=== PATIENT | male | born 1940 | race Caucasian/White ===

== ENCOUNTER 2018-04-12 16:34 | Emergency (ER) | payer MEDICARE ==
[~2018-04-12] VITALS: Ht 172.7 cm; Wt 77.1 kg
[2018-04-12 16:38] VITALS: Ht 172.7 cm; Wt 77.1 kg
[2018-04-12 17:49] LABS: BASOPHILS 0.4 % (0-2); EOSINOPHILS 1.7 % (0-7); HEMATOCRIT 44.5 % (42.0-54.0); HEMOGLOBIN 15.6 g/dL (13.5-17.5); IMMATURE GRANULOCYTES 0.2 % (0-5); LYMPHOCYTES 22.5 % (15-50); MCH 35.8 pg (26.0-34.0); MCHC 35.1 g/dL (31.0-37.0); MCV 102.1 fL (80.0-100.0); MEAN PLATELET VOLUME 11.6 fL (7.4-10.4); NEUTROPHILS 61.2 % (40-80); PLATELET COUNT 183 10x3/uL (130-400); RBC 4.36 10x6/uL (4.20-6.10); RDW 13.1 % (11.5-14.5); WBC 8.4 10x3/uL (4.8-10.8)
[2018-04-12 17:50] LABS: APPEARANCE CLEAR (CLEAR); BILIRUBIN NEGATIVE (NEGATIVE); COLOR YELLOW (YELLOW); GLUCOSE NEGATIVE (NEGATIVE); KETONE SMALL mg/dL (NEGATIVE); NITRITE NEGATIVE (NEGATIVE); PROTEIN NEGATIVE (NEGATIVE); SPECIFIC GRAVITY 1.025 (1.005-1.020); UROBILINOGEN NORMAL (NORMAL)
[2018-04-12 18:02] LABS: UDS - AMPHET NEGATIVE QUAL (NEGATIVE); UDS - BARB NEGATIVE QUAL (NEGATIVE); UDS - BENZO NEGATIVE QUAL (NEGATIVE); UDS - COCAINE NEGATIVE QUAL (NEGATIVE); UDS - OPIATE NEGATIVE QUAL (NEGATIVE); UDS - PCP NEGATIVE QUAL (NEGATIVE); UDS - THC NEGATIVE QUAL (NEGATIVE)
[2018-04-12 18:07] LABS: ALBUMIN 3.3 g/dL (3.4-5.0); ALKALINE PHOSPHATASE 54 U/L (46-116); ALT (SGPT) 36 U/L (10-68); BILIRUBIN - TOTAL 0.99 mg/dL (0.2-1.3); CALC OSMOLALITY 275 mosm/kg (275-300); CALCIUM 9.5 mg/dL (8.5-10.1); CARBON DIOXIDE 29.8 mmol/L (21.0-32.0); CHLORIDE - SERUM 100 mmol/L (98-107); GLUCOSE 98 mg/dL (74-106); POTASSIUM - SERUM 3.6 mmol/L (3.5-5.1); PROTEIN - SERUM 6.5 g/dL (6.4-8.2); SODIUM 137 mmol/L (136-145); UREA NITROGEN 18 mg/dL (7-18); eGFR NON AFRICAN AMERICAN 76 mL/min (90-120)
[2018-04-12 18:15] LABS: THYROID STIMULATING HORMONE 1.25 uIU/mL (0.36-3.74)
[2018-04-12 20:41] VITALS: BP 137/77
[2018-04-13] MEDS ORDERED: INDERAL LA80 MG PO (10:08)
[2018-04-13] MEDS ORDERED: ARICEPT23 MG PO (10:11)
[2018-04-13] MEDS ORDERED: TYLENOL W/CODEI1 TAB PO (10:17)
[2018-04-13] MEDS ORDERED: ZOLOFT50 MG PO (10:19)
[2018-04-13] MEDS ORDERED: OMEPRAZOLE20 M1 PO (10:22)
[2018-04-13] MEDS ORDERED: ZYLOPRIM300 MG PO (10:23)
[2018-04-13] MEDS ORDERED: VIAGRA100 MG PO (10:27)
[2018-04-13] MEDS ORDERED: FLUTICASONE PRO16 GM NASAL (10:39)
[2018-04-13] MEDS ORDERED: BUTALB-APAP-CA1 EACH PO (10:57)
== END 2018-04-12 20:48 ==
LOC: D.ER 16:34
PROVIDERS: Family Medicine
DX: G30.9 Alzheimer's disease, unspecified (principal); F02.81 Dementia in other diseases classified elsewhere, unspecified severity, with behavioral disturbance

== ENCOUNTER 2018-04-12 21:11 | Inpatient (IN) | payer MEDICARE ==
[~2018-04-12] VITALS: Ht 172.7 cm; Wt 79.1 kg
--- NOTE | ~2018-04-12 | PN ---
PATIENT:DAY ANDRADE MEDICAL RECORD: [id number] LOCATION:JACOB Prajapati ADMISSION DATE: 04/12/18 PROGRESS NOTE DATE OF SERVICE: 04/18/2018 SUBJECTIVE: No new complaint. OBJECTIVE: The patient remains extremely cooperative. He is very pleasant and easily redirected. The patient has shown absolutely no evidence of aggressiveness or assaultiveness. He is compliant with nursing staff and takes medication when offered. On exam, mood is euthymic. Affect is bland. Speech is tangential and circumstantial. Content of thought is negative for psychosis or suicidality. Sensorium unchanged. ASSESSMENT: No change in diagnosis. PLAN: 1. Awaiting resolution of placement options. 2. Continue current medications and supportive therapy. TRANSINT:[id number] Voice Confirmation ID: [id number] DOCUMENT ID: [id number] MONCHO ZEPEDA III, MD at 1133 CC: [id number] DICTATION DATE: 04/18/18 1247 TWISTER TENDER: 04/18/18 1411 ADM IN [place] [id number] [place] [address]
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
--- NOTE | ~2018-04-12 | PN ---
PATIENT:DAY ANDRADE MEDICAL RECORD: [id number] LOCATION:JACOB Prajapati ADMISSION DATE: 04/12/18 PROGRESS NOTE DATE OF SERVICE: 04/15/2018 SUBJECTIVE: No new complaint. OBJECTIVE: The patient has been cooperative. He slept somewhat less than 4 hours last night. On exam today, the patient's speech is tangential and rambling. He shows mild dysarthria. He does have a history of excessive alcohol consumption. The patient's mood is euthymic. Affect is bland. Thought content negative for psychosis. Sensorium unchanged. ASSESSMENT: No change in diagnosis. PLAN: 1. Maintain current medications, but add trazodone 50 mg at bedtime. 2. Continue supportive therapy. TRANSINT:[id number] Voice Confirmation ID: [id number] DOCUMENT ID: [id number] MONCHO ZEPEDA III, MD at 0553 CC: [id number] DICTATION DATE: 04/15/18 1425 HAT FINISHER: 04/15/18 1533 ADM IN [place] [address] [place] [id number]
--- NOTE | ~2018-04-12 | PN ---
PATIENT:DAY ANDRADE MEDICAL RECORD: [id number] LOCATION:JACOB Prajapati ADMISSION DATE: 04/12/18 PROGRESS NOTE DATE OF SERVICE: 04/14/2018 SUBJECTIVE: The patient's case was discussed with staff. He has no new complaint. OBJECTIVE: The patient is confused, but in good behavioral control. He has not been aggressive. He does have neuropsychological testing pending. ASSESSMENT: No change in diagnoses. PLAN: Supportive and educational interventions were made. Long-term prognosis is guarded. TRANSINT:[id number] Voice Confirmation ID: [id number] DOCUMENT ID: [id number] ERIC HEALY MD at 1434 CC: [id number] DICTATION DATE: 04/14/18 1400 DIRECTOR PHARMACEUTICAL: 04/14/18 1435 DIS IN 04/22/18 [facility] [address] [place] [address]
--- NOTE | ~2018-04-12 | PN ---
PATIENT:DAY ANDRADE MEDICAL RECORD: [id number] LOCATION:JACOB Jones113 ADMISSION DATE: 04/12/18 PROGRESS NOTE DATE OF SERVICE: 04/19/2018 SUBJECTIVE: No new complaint. OBJECTIVE: The patient has continued to be quiet and pleasant and cooperative and compliant with staff. He shows absolutely no evidence whatsoever of any aggressiveness or hostility. He has no memory of events leading up to the hospitalization. He is oriented only to person with absolutely no insight. ASSESSMENT: No change in diagnosis. PLAN: 1. Continue current medication. 2. Await placement, resolution. TRANSINT:[id number] Voice Confirmation ID: [id number] DOCUMENT ID: [id number] MONCHO ZEPEDA III, MD at 1019 CC: [id number] DICTATION DATE: 04/19/18 1152 SULFUR BURNER: 04/19/18 1215 ADM IN [place] [address] [place] [address]
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
--- NOTE | ~2018-04-12 | PN ---
PATIENT:DAY ANDRADE MEDICAL RECORD: [id number] LOCATION:KeliTAYLORGladys JonesChristie ADMISSION DATE: 04/12/18 PROGRESS NOTE DATE OF SERVICE: 04/22/2018 SUBJECTIVE: No new complaint. OBJECTIVE: The patient is scheduled for discharge to [facility] today, tolerating medications. No new problems. On exam, mood is pleasant and euthymic. Affect is shallow and constricted. Speech is tangential. Content of thought unchanged. Sensorium unchanged. ASSESSMENT: No change in diagnosis. PLAN: The patient will be discharged later today. TRANSINT:[id number] Voice Confirmation ID: [id number] DOCUMENT ID: [id number] MONCHO ZEPEDA III, MD at 1229 CC: [id number] DICTATION DATE: 04/22/18 1128 UPHOLSTERER ASSEMBLY LINE: 04/22/18 1133 ADM IN [facility] [address] [place] [address]
[2018-04-13 07:49] LABS: BASOPHILS 0.4 % (0-2); HEMATOCRIT 45.9 % (42.0-54.0); HEMOGLOBIN 15.8 g/dL (13.5-17.5); IMMATURE GRANULOCYTES 0.4 % (0-5); LYMPHOCYTES 27.5 % (15-50); MCH 35.1 pg (26.0-34.0); MCHC 34.4 g/dL (31.0-37.0); MEAN PLATELET VOLUME 11.6 fL (7.4-10.4); MONOCYTES 11.5 % (2-11); NEUTROPHILS 58.2 % (40-80); PLATELET COUNT 193 10x3/uL (130-400); RDW 13.1 % (11.5-14.5); WBC 7.3 10x3/uL (4.8-10.8)
[2018-04-13 08:23] LABS: ALBUMIN 3.4 g/dL (3.4-5.0); ALKALINE PHOSPHATASE 54 U/L (46-116); ALT (SGPT) 35 U/L (10-68); BILIRUBIN - TOTAL 1.07 mg/dL (0.2-1.3); CALC OSMOLALITY 277 mosm/kg (275-300); CALCIUM 9.2 mg/dL (8.5-10.1); CARBON DIOXIDE 31.6 mmol/L (21.0-32.0); CHLORIDE - SERUM 101 mmol/L (98-107); CHOL - HDL RATIO 4.1 ratio (2.3-4.9); CHOLESTEROL, TOTAL 178 mg/dL (0-200); GLUCOSE 87 mg/dL (74-106); HDL CHOLESTEROL 44 mg/dL (32-96); LDL CHOLESTEROL 120 mg/dL (0-100); LDL-HDL RATIO 2.7 ratio (1.5-3.5); POTASSIUM - SERUM 3.3 mmol/L (3.5-5.1); PROTEIN - SERUM 6.7 g/dL (6.4-8.2); SODIUM 140 mmol/L (136-145); THYROID STIMULATING HORMONE 1.55 uIU/mL (0.36-3.74); TRIGLYCERIDE 71 mg/dL (30-200); eGFR NON AFRICAN AMERICAN 76 mL/min (90-120)
[2018-04-13 08:24] LABS: UREA NITROGEN 13 mg/dL (7-18)
[2018-04-13] MEDS ORDERED: INDERAL LA80 MG PO (10:08)
[2018-04-13] MEDS ORDERED: ARICEPT23 MG PO (10:11)
[2018-04-13] MEDS ORDERED: TYLENOL W/CODEI1 TAB PO (10:17)
[2018-04-13] MEDS ORDERED: ZOLOFT50 MG PO (10:19)
[2018-04-13] MEDS ORDERED: OMEPRAZOLE20 M1 PO (10:22)
[2018-04-13] MEDS ORDERED: ZYLOPRIM300 MG PO (10:23)
[2018-04-13] MEDS ORDERED: VIAGRA100 MG PO (10:27)
[2018-04-13] MEDS ORDERED: FLUTICASONE PRO16 GM NASAL (10:39)
[2018-04-13] MEDS ORDERED: BUTALB-APAP-CA1 EACH PO (10:57)
[2018-04-13 11:57] VITALS: BP 112/68
[2018-04-13 13:46] VITALS: BP 112/68; BMI 26.5
[2018-04-13 14:17] VITALS: BMI 26.5
[2018-04-13 14:59] VITALS: Ht 172.7 cm; Wt 79.1 kg
[2018-04-13 19:45] VITALS: BP 117/69
[2018-04-14 07:30] VITALS: BP 126/73
[2018-04-14 07:33] LABS: RAPID PLASMA REAGIN Non Reactive (Non Reactive)
[2018-04-14 08:21] LABS: FOLATE (FOLIC ACID) - SERUM 7.8 ng/mL (>3.0); VITAMIN D 25 HYDROXY 20.3 ng/mL (30.0-100.0)
[2018-04-14 19:24] VITALS: BP 151/85
[2018-04-15 08:12] VITALS: BP 110/68
[2018-04-15 19:41] VITALS: BP 102/50
[2018-04-16 08:03] VITALS: BP 107/57
[2018-04-16 19:09] VITALS: BP 112/69
[2018-04-17 08:24] VITALS: BP 123/69
[2018-04-17 19:09] VITALS: BP 149/82
[2018-04-18 10:28] VITALS: BP 143/77
[2018-04-18 20:21] VITALS: BP 142/73
[2018-04-19 10:15] VITALS: BP 140/82
[2018-04-19 19:38] VITALS: BP 148/76
[2018-04-20 08:31] VITALS: BP 142/62
[2018-04-20 19:32] VITALS: BP 101/58
[2018-04-21 08:10] VITALS: BP 127/55
[2018-04-21] MEDS ORDERED: TRAZODONE HCL50 MG PO (10:41)
[2018-04-21] MEDS ORDERED: NAMENDA5 MG PO (10:41)
[2018-04-21 19:08] VITALS: BP 119/71
== END 2018-04-22 14:36 | DRG 57 ==
LOC: D.PSYCH 21:11
PROVIDERS: Psychiatry & Neurology Psychiatry
DX: G30.1 Alzheimer's disease with late onset (principal); F02.81 Dementia in other diseases classified elsewhere, unspecified severity, with behavioral disturbance; I10 Essential (primary) hypertension; F41.8 Other specified anxiety disorders; K21.9 Gastro-esophageal reflux disease without esophagitis; J30.9 Allergic rhinitis, unspecified; G47.00 Insomnia, unspecified; E87.6 Hypokalemia; E55.9 Vitamin D deficiency, unspecified

== ENCOUNTER → 2018-05-06 10:33 | Outpatient (CLI) | payer MEDICARE ==
[2018-04-13 14:59] VITALS: BMI 26.5
[~2018-05-06 10:33] MED LIST: ARICEPT23 MG PO; BUTALB-APAP-CA1 EACH PO; COLACE100 MG PO; FLORAJEN3 CAPS460 MG PO; FLUTICASONE PRO16 GM NASAL; INDERAL LA80 MG PO; KLONOPIN0.5 MG PO; MEGACE40 MG PO; NAMENDA5 MG PO; OMEPRAZOLE20 M1 PO; SEROQUEL25 MG PO; TRAZODONE HCL50 MG PO; TYLENOL W/CODEI1 TAB PO; VIAGRA100 MG PO; ZOLOFT50 MG PO; ZYLOPRIM300 MG PO
== END | disposition home or self-care (01) ==
LOC: D.ECHO 10:33
DX: I48.91 Unspecified atrial fibrillation (principal)

== ENCOUNTER 2018-05-18 18:12 | Inpatient (IN) | payer MEDICARE ==
[~2018-05-18] VITALS: Ht 172.7 cm; Wt 73.3 kg
--- NOTE | ~2018-05-18 | PN ---
PATIENT:DAY ANDRADE MEDICAL RECORD: [id number] LOCATION:JACOB Prajapati ADMISSION DATE: 05/18/18 PROGRESS NOTE DATE OF SERVICE: 05/23/2018 SUBJECTIVE: No new complaint offered. OBJECTIVE: The patient had been quite obtunded yesterday and had poor oral intake. He had required several p.r.n. medications on the previous day. This morning, he is much more alert, although he is somewhat poorly responsive to the examiner (he seems much more interested in his breakfast). On exam, the patient's mood is euthymic. Affect is constricted. Speech is quite terse. Content of thought is negative for overt psychosis. Sensorium appears unchanged. ASSESSMENT: No change in diagnosis. PLAN: 1. Continue current medication. 2. Continue supportive therapy. TRANSINT:[id number] Voice Confirmation ID: [id number] DOCUMENT ID: [id number] MONCHO ZEPEDA III, MD at 1026 CC: [id number] DICTATION DATE: 05/23/18923 HIDE MEASURING MACHINE OPERATOR: 05/23/18 1126 [facility] IN [facility] [address] [place] [id number]
--- NOTE | ~2018-05-18 | PN ---
PATIENT:DAY ANDRADE MEDICAL RECORD: [id number] LOCATION:JACOB Prajapati ADMISSION DATE: 05/18/18 PROGRESS NOTE DATE OF SERVICE: 05/30/2018 SUBJECTIVE: No new complaint noted. OBJECTIVE: The patient has been very pleasant and cooperative. He remains quite confused. Staff is waiting on results of assessment by JANIS and associates. The patient seems to have recovered completely from his urinary tract infection. On exam, mood is pleasant and euthymic. Affect is very shallow. Speech is nonsensical. Content of thought focuses only on somatic concerns. Sensorium is unchanged. ASSESSMENT: No change in diagnosis. PLAN: 1. Continue current medication. 2. Continue supportive therapy. TRANSINT:[id number] Voice Confirmation ID: [id number] DOCUMENT ID: [id number] MONCHO ZEPEDA III, MD at 1035 CC: [id number] DICTATION DATE: 05/30/18 1145 ART SPECIALIST: 05/30/18 1156 ADM IN [place] [id number] [place] [id number]
--- NOTE | ~2018-05-18 | PN ---
PATIENT:DAY ANDRADE MEDICAL RECORD: [id number] LOCATION:JACOB Prajapati ADMISSION DATE: 05/18/18 PROGRESS NOTE DATE OF SERVICE: 05/26/2018 SUBJECTIVE: No new complaint. OBJECTIVE: The patient continues to be cooperative and pleasant. He is taking his medications as prescribed. He is walking with minimal difficulty. On exam, mood is euthymic. Affect is pleasant and bland. Speech is tangential. Content of thought is negative for overt psychosis. Sensorium unchanged. ASSESSMENT: No change in diagnosis. PLAN: 1. Continue all current medication. 2. Continue supportive therapy. TRANSINT:[id number] Voice Confirmation ID: [id number] DOCUMENT ID: [id number] MONCHO ZEPEDA III, MD at 1012 CC: [id number] DICTATION DATE: 05/26/18 1056 SOAKER MEAT: 05/26/18 1107 ADM IN [facility] [address] [place] [address]
--- NOTE | ~2018-05-18 | PN ---
PATIENT:DAY ANDRADE MEDICAL RECORD: [id number] LOCATION:JACOB DickeyLenoreChristie ADMISSION DATE: 05/18/18 PROGRESS NOTE DATE OF SERVICE: 06/01/2018 SUBJECTIVE: The patient's case was discussed with staff. He has no new complaint. OBJECTIVE: The patient is in good behavioral control with limited insight about his condition. He generally tolerates his medicines well. ASSESSMENT: No change in diagnoses. PLAN: Brief supportive and educational interventions were made. Long-term prognosis is guarded. TRANSINT:[id number] Voice Confirmation ID: [id number] DOCUMENT ID: [id number] ERIC HEALY MD at 1303 CC: [id number] DICTATION DATE: 06/01/18 1147 BIOFUELS PRODUCT MANAGER: 06/01/18 1156 ADM IN [place] [address] [place] [address]
--- NOTE | ~2018-05-18 | PN ---
PATIENT:DAY ANDRADE MEDICAL RECORD: [id number] LOCATION:JACOB Karen113 ADMISSION DATE: 05/18/18 PROGRESS NOTE DATE OF SERVICE: 05/20/2018 SUBJECTIVE: The patient's case was discussed with staff. He has no new complaint. OBJECTIVE: The patient is in good behavioral control with limited insight about his condition. He tolerates his medicines well. Eye contact is fair. Concentration is fair. ASSESSMENT: No change in diagnoses. PLAN: The patient is arousable, but clearly he is a little bit over sedated. I am sure this is related to all of the p.r.n. medication he received yesterday for being so agitated. I am going to stop or hold his trazodone for today. I will reassess the situation tomorrow as far as what he may need his behavior if anything. He did not eat well today, but again that is probably because he is sedated. TRANSINT:[id number] Voice Confirmation ID: [id number] DOCUMENT ID: [id number] ERIC HEALY MD at 1008 CC: [id number] DICTATION DATE: 05/20/18 1538 TELEPHONE ORDER DISPATCHER: 05/20/18 1558 ADM IN [place] [address] [place] [address]
--- NOTE | ~2018-05-18 | PN ---
PATIENT:DAY ANDRADE MEDICAL RECORD: [id number] LOCATION:JACOB Prajapati ADMISSION DATE: 05/18/18 PROGRESS NOTE DATE OF SERVICE: 06/04/2018 SUBJECTIVE: The patient's case was discussed with staff. He has no new complaint. OBJECTIVE: The patient is in good behavioral control with poor insight about his condition. He tolerates his medicines well. ASSESSMENT: No change in diagnoses. PLAN: Current medicines have been reviewed and will be maintained. Long-term prognosis is guarded. TRANSINT:[id number] Voice Confirmation ID: [id number] DOCUMENT ID: [id number] ERIC HEALY MD at 1039 CC: [id number] DICTATION DATE: 06/04/18 1200 REROLLING MACHINE OPERATOR: 06/04/18 1217 ADM IN [place] [address] [place] [address]
--- NOTE | ~2018-05-18 | PN ---
PATIENT:DAY ANDRADE MEDICAL RECORD: [id number] LOCATION:JACOB Prajapati ADMISSION DATE: 05/18/18 PROGRESS NOTE DATE OF SERVICE: 06/03/2018 SUBJECTIVE: The patient's case was discussed with staff. He has no new complaint. OBJECTIVE: The patient required p.r.n. medication last night because of some agitation. This is the first outburst he has had in several days at least. He does not have any recollection of what happened. I have reviewed his medications and I am going to view this as an isolated event. I still think he would be appropriate for discharge sometime next week. TRANSINT:[id number] Voice Confirmation ID: [id number] DOCUMENT ID: [id number] ERIC HEALY MD at 1007 CC: [id number] DICTATION DATE: 06/03/18 1437 DIAGRAMMER AND SEAMER: 06/03/18 1449 ADM IN [place] [address] [place] [address]
--- NOTE | ~2018-05-18 | PN ---
PATIENT:DAY ANDRADE MEDICAL RECORD: [id number] LOCATION:JACOB Prajapati ADMISSION DATE: 05/18/18 PROGRESS NOTE DATE OF SERVICE: 06/02/2018 SUBJECTIVE: The patient's case was discussed with staff. He has no new complaint. OBJECTIVE: The patient is in good behavioral control with limited insight about his condition. He is tolerating his medicines well. Eye contact is fair. ASSESSMENT: No change in diagnoses. PLAN: I anticipate the patient can be transitioned out of the hospital soon if this level of improvement is maintained. His long-term prognosis is guarded. TRANSINT:[id number] Voice Confirmation ID: [id number] DOCUMENT ID: [id number] ERIC HEALY MD at 0754 CC: [id number] DICTATION DATE: 06/02/18 1337 NUTRITIONAL SERVICES DIRECTOR: 06/02/18 1344 ADM IN [place] [id number] [place] [id number]
--- NOTE | ~2018-05-18 | PN ---
PATIENT:DAY ANDRADE MEDICAL RECORD: [id number] LOCATION:JACOB Prajapati ADMISSION DATE: 05/18/18 PROGRESS NOTE DATE OF SERVICE: 06/14/2018 SUBJECTIVE: The patient's case was discussed with staff. He has no new complaint. OBJECTIVE: The patient denies intent to harm himself or others. He generally tolerates his medicines well. Eye contact is fair. Concentration is fair. ASSESSMENT: No change in diagnoses. PLAN: Brief supportive and educational interventions were made. Long-term prognosis is guarded. The patient will be transitioned out of the hospital today. Follow up is to be with his primary care detention physician. TRANSINT:[id number] Voice Confirmation ID: [id number] DOCUMENT ID: [id number] ERIC HEALY MD at 1315 CC: [id number] DICTATION DATE: 06/14/18 1501 GENERAL NEUROLOGIST: 06/14/18 1525 DIS IN 06/14/18 [facility] [address] [place] [address]
--- NOTE | ~2018-05-18 | PN ---
PATIENT:DAY ANDRADE MEDICAL RECORD: [id number] LOCATION:KeliJENNIFER DickeyLenoreChristie ADMISSION DATE: 05/18/18 PROGRESS NOTE DATE OF SERVICE: 06/11/2018 SUBJECTIVE: The patient's case was discussed with staff. He has no new complaint. OBJECTIVE: The patient is sleeping reasonably well, in fact he slept 9 hours last night. Unfortunately, he is not eating very well, having eaten only 80% of one meal yesterday. When asked about this, he contradicts himself and says that he is eating just fine and that there is no problem. He is not underweight, but he certainly does not have room to lose a lot of weight. I am going to go ahead and start him on Megace for its appetite stimulating properties and will encourage the treatment team to have him eat better as best they can. He does not require feeding, but assistance would be helpful. TRANSINT:[id number] Voice Confirmation ID: [id number] DOCUMENT ID: [id number] ERIC HEALY MD at 0949 CC: [id number] DICTATION DATE: 06/11/18820 WARD ATTENDANT: 06/11/18 0857 ADM IN [facility] [address] [place] [id number]
--- NOTE | ~2018-05-18 | PN ---
PATIENT:DAY ANDRADE MEDICAL RECORD: [id number] LOCATION:JACOB Prajapati ADMISSION DATE: 05/18/18 PROGRESS NOTE DATE OF SERVICE: 06/08/2018 SUBJECTIVE: The patient's case was discussed with staff. He has no new complaint. OBJECTIVE: The patient denies intent to harm himself or others. He generally tolerates his medicines well. Eye contact is fair. ASSESSMENT: No change in diagnoses. PLAN: Brief supportive and educational interventions were made. Long-term prognosis is guarded. TRANSINT:[id number] Voice Confirmation ID: [id number] DOCUMENT ID: [id number] ERIC HEALY MD at 0849 CC: [id number] DICTATION DATE: 06/08/18 1614 WHISTLE PUNK: 06/08/18 1757 ADM IN [place] [address] [place] [address]
--- NOTE | ~2018-05-18 | PN ---
PATIENT:DAY ANDRADE MEDICAL RECORD: [id number] LOCATION:JACOB JonesChristie ADMISSION DATE: 05/18/18 PROGRESS NOTE DATE OF SERVICE: 06/10/2018 SUBJECTIVE: The patient's case was discussed with staff. He has no new complaint. OBJECTIVE: The patient is in good behavioral control with limited insight about his condition. ASSESSMENT: No change in diagnoses. PLAN: The patient is taking his medications as prescribed. He is not eating very well, but that tends to vary a little bit. He is sleeping reasonably well, but at times he still is agitated. I have reviewed his current medications. I think that it is reasonable to leave the current medicines as they are today since they have not had an opportunity to become effective. He was just started on a low dose of Seroquel 2 days ago. I am going to monitor the changes associated with this through the weekend. TRANSINT:[id number] Voice Confirmation ID: [id number] DOCUMENT ID: [id number] ERIC HEALY MD at 0742 CC: [id number] DICTATION DATE: 06/10/18 1454 LABORER TIN CAN: 06/10/18 1525 ADM IN [place] [id number] [place] [address]
--- NOTE | ~2018-05-18 | PN ---
PATIENT:DAY ANDRADE MEDICAL RECORD: [id number] LOCATION:JACOB Prajapati ADMISSION DATE: 05/18/18 PROGRESS NOTE DATE OF SERVICE: 06/07/2018 SUBJECTIVE: The patient's case was discussed with staff. He has no new complaint. OBJECTIVE: The patient is in good behavioral control with limited insight about his condition. He does tolerate his medicines well. ASSESSMENT: No change in diagnoses. PLAN: Supportive and educational interventions were made. Long-term prognosis is guarded. I think the Klonopin that was started yesterday has helped with his condition. It will take a little bit longer to see its full effect. TRANSINT:[id number] Voice Confirmation ID: [id number] DOCUMENT ID: [id number] ERIC HEALY MD at 1520 CC: [id number] DICTATION DATE: 06/07/18 1542 PHOTOCOPYING MACHINE OPERATOR: 06/07/18 1637 ADM IN [place] [id number] [place] [address]
--- NOTE | ~2018-05-18 | PN ---
PATIENT:DAY ANDRADE MEDICAL RECORD: [id number] LOCATION:JACOB Prajapati ADMISSION DATE: 05/18/18 PROGRESS NOTE DATE OF SERVICE: 05/22/2018 SUBJECTIVE: The patient's case was discussed with staff. He has no new complaint. OBJECTIVE: The patient is in good behavioral control with limited insight about his condition. He tolerates his medicines well. ASSESSMENT: No change in diagnoses. PLAN: Brief supportive and educational interventions were made. Long-term prognosis is guarded. The patient is still very disorganized and not sleeping or eating well. He has been started on Megace to assist with appetite stimulation. He was sleeping in the day room today when I came to see him. I have asked the staff to try and keep him awake during the day since it appears he is getting his days and nights confused. TRANSINT:[id number] Voice Confirmation ID: [id number] DOCUMENT ID: [id number] ERIC HEALY MD at 1354 CC: [id number] DICTATION DATE: 05/22/18 1113 SWING GRINDER: 05/22/18 1517 ADM IN [facility] [address] [place] [address]
--- NOTE | ~2018-05-18 | PN ---
PATIENT:DAY ANDRADE MEDICAL RECORD: [id number] LOCATION:[facility] ADMISSION DATE: 05/18/18 PROGRESS NOTE DATE OF SERVICE: 05/25/2018 SUBJECTIVE: No new complaint is offered. OBJECTIVE: The patient is much more responsive and alert. He is pleasant and smiles a great deal of the time now. No aggressiveness noted. On exam, mood is pleasant and euthymic. Affect is bland. Speech is tangential. Content of thought is negative for overt psychosis. Sensorium unchanged. ASSESSMENT: No change in diagnosis. PLAN: 1. The patient is awaiting assessment by [facility]. 2. Continue current medications. 3. Continue supportive therapy. TRANSINT:[id number] Voice Confirmation ID: [id number] DOCUMENT ID: [id number] MONCHO ZEPEDA III, MD at 0532 CC: [id number] DICTATION DATE: 05/25/18 1132 AIRBRUSH ARTIST PHOTOGRAPHY: 05/25/18 1148 ADM IN [place] [id number] [place] [id number]
--- NOTE | ~2018-05-18 | PN ---
PATIENT:DAY ANDRADE MEDICAL RECORD: [id number] LOCATION:[facility] ADMISSION DATE: 05/18/18 PROGRESS NOTE DATE OF SERVICE: 06/12/2018 SUBJECTIVE: The patient's case was discussed with staff. He has no new complaint. OBJECTIVE: The patient denies intent to harm himself or others. He does tolerate his medicines well. Eye contact is fair. Concentration is fair. ASSESSMENT: No change in diagnoses. PLAN: Brief supportive and educational interventions were made. Long-term prognosis is guarded. I anticipate he can be transitioned to the hospital soon if this level of improvement is maintained. TRANSINT:[id number] Voice Confirmation ID: [id number] DOCUMENT ID: [id number] ERIC HEALY MD at 1428 CC: [id number] DICTATION DATE: 06/12/18 1027 BUSINESS PRACTICES SUPERVISOR: 06/12/18 1302 ADM IN [place] [id number] [place] [address]
--- NOTE | ~2018-05-18 | PN ---
PATIENT:DAY ANDRADE MEDICAL RECORD: [id number] LOCATION:[facility] ADMISSION DATE: 05/18/18 PROGRESS NOTE DATE OF SERVICE: 06/05/2018 SUBJECTIVE: The patient's case was discussed with staff. He has no new complaint. OBJECTIVE: The patient is in good behavioral control with limited insight about his condition. He tolerates his medicines reasonably well. ASSESSMENT: No change in diagnoses. PLAN: The patient is extremely confused, but not directly or acutely dangerous. I anticipate he can be transitioned out of the hospital soon. TRANSINT:[id number] Voice Confirmation ID: [id number] DOCUMENT ID: [id number] ERIC HEALY MD at 1320 CC: [id number] DICTATION DATE: 06/05/18 1113 PROCEDURES ANALYST: 06/05/18 1152 ADM IN [facility] [address] [place] [address]
--- NOTE | ~2018-05-18 | PN ---
PATIENT:DAY ANDRADE MEDICAL RECORD: [id number] LOCATION:[facility] ADMISSION DATE: 05/18/18 PROGRESS NOTE DATE OF SERVICE: 06/13/2018 SUBJECTIVE: The patient's case was discussed with staff. He has no new complaint. OBJECTIVE: The patient is disorganized with limited insight about his condition. He has not been aggressive, although he has periodic episodes of aggression. ASSESSMENT: No change in diagnoses. PLAN: Current medicines and therapies have been reviewed and will be maintained. I am going to transition the patient back to the senior living tomorrow. His long-term prognosis is guarded. It is in my opinion a situation in which his dementia is so advanced that comfort care measures would not be at all unreasonable. TRANSINT:[id number] Voice Confirmation ID: [id number] DOCUMENT ID: [id number] ERIC HEALY MD at 1402 CC: [id number] DICTATION DATE: 06/13/18 1437 DARKROOM TECHNICIAN: 06/13/18 1521 ADM IN [place] [id number] [place] [address]
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
--- NOTE | ~2018-05-18 | PN ---
PATIENT:DAY ANDRADE MEDICAL RECORD: [id number] LOCATION:[facility] ADMISSION DATE: 05/18/18 PROGRESS NOTE DATE OF SERVICE: 05/27/2018 SUBJECTIVE: No new complaint. OBJECTIVE: The patient has been wandering about the unit. He is quite confused. He appears not to recognize family members. Staff is awaiting assessment by [facility]. On exam, mood is euthymic. Affect is bland. Speech is nonsensical. Content of thought is negative for overt psychosis. Sensorium unchanged. ASSESSMENT: No change in diagnosis. PLAN: 1. Continue current medication. 2. Continue supportive therapy. TRANSINT:[id number] Voice Confirmation ID: [id number] DOCUMENT ID: [id number] MONCHO ZEPEDA III, MD at 0711 CC: [id number] DICTATION DATE: 05/27/18 1114 ROBOTIC MACHINE TENDER PRODUCTION: 05/27/18 1136 ADM IN [place] [id number] [place] [address]
--- NOTE | ~2018-05-18 | PN ---
PATIENT:DAY ANDRADE MEDICAL RECORD: [id number] LOCATION:[facility] ADMISSION DATE: 05/18/18 PROGRESS NOTE DATE OF SERVICE: 06/09/2018 SUBJECTIVE: The patient's case was discussed with staff. He has no new complaint. OBJECTIVE: The patient denies intent to harm himself or others. He generally tolerates his medicines well. ASSESSMENT: No change in diagnoses. PLAN: Brief supportive and educational interventions were made. Long-term prognosis is guarded. TRANSINT:[id number] Voice Confirmation ID: [id number] DOCUMENT ID: [id number] ERIC HEALY MD at 1223 CC: [id number] DICTATION DATE: 06/09/18 1400 WAREHOUSE PRODUCTION WORKER: 06/09/18 1626 ADM IN [place] [id number]
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
--- NOTE | ~2018-05-18 | PN ---
PATIENT:DAY ANDRADE MEDICAL RECORD: [id number] LOCATION:[facility] ADMISSION DATE: 05/18/18 PROGRESS NOTE DATE OF SERVICE: 05/24/2018 SUBJECTIVE: No new complaint. OBJECTIVE: The patient is more alert and cooperative. He is participating to a mild degree in some group activities. He is feeding himself better. On exam, mood is euthymic. Affect is bland. Speech is somewhat tangential. Content of thought negative for overt psychosis. Sensorium unchanged. ASSESSMENT: No change in diagnosis. PLAN: 1. Continue current medication. 2. Continue supportive therapy. TRANSINT:[id number] Voice Confirmation ID: [id number] DOCUMENT ID: [id number] MONCHO ZEPEDA III, MD at 2046 CC: [id number] DICTATION DATE: 05/24/18 1120 FLOUR MIXER: 05/24/18 1234 ADM IN [place] [id number] [place] [id number]
--- NOTE | ~2018-05-18 | PN ---
PATIENT:DAY ANDRADE MEDICAL RECORD: [id number] LOCATION:[facility] ADMISSION DATE: 05/18/18 PROGRESS NOTE DATE OF SERVICE: 05/21/2018 SUBJECTIVE: The patient's case was discussed with staff. He has no new complaint. OBJECTIVE: The patient is in good behavioral control with limited insight about his condition. He does tolerate his medicines well. ASSESSMENT: No change in diagnoses. PLAN: Current medicines and therapies have been reviewed and will be maintained. Long-term prognosis is guarded. The patient is not eating or sleeping very well despite the fact that his behaviors have been good. Based on this, I am going to prescribe some Megace and trazodone for him. TRANSINT:[id number] Voice Confirmation ID: [id number] DOCUMENT ID: [id number] ERIC HEALY MD at 1034 CC: [id number] DICTATION DATE: 05/21/18 1426 GAS SUBSTATION OPERATOR: 05/21/18 2310 ADM IN [place] [id number] [place] [address]
[~2018-05-18 18:12] MED LIST changes: -COLACE100 MG PO; -FLORAJEN3 CAPS460 MG PO; -KLONOPIN0.5 MG PO; -MEGACE40 MG PO; -SEROQUEL25 MG PO
[2018-05-19 06:14] VITALS: BP 88/51; BMI 25.1
[2018-05-19 07:59] LABS: BASOPHILS 0.4 % (0-2); EOSINOPHILS 1.7 % (0-7); HEMATOCRIT 45.2 % (42.0-54.0); HEMOGLOBIN 15.5 g/dL (13.5-17.5); IMMATURE GRANULOCYTES 0.1 % (0-5); LYMPHOCYTES 27.8 % (15-50); MCH 34.9 pg (26.0-34.0); MCHC 34.3 g/dL (31.0-37.0); MCV 101.8 fL (80.0-100.0); MEAN PLATELET VOLUME 11.7 fL (7.4-10.4); MONOCYTES 10.5 % (2-11); NEUTROPHILS 59.5 % (40-80); PLATELET COUNT 196 10x3/uL (130-400); RBC 4.44 10x6/uL (4.20-6.10); RDW 13.2 % (11.5-14.5); WBC 7.4 10x3/uL (4.8-10.8)
[2018-05-19 08:26] LABS: ALBUMIN 3.8 g/dL (3.4-5.0); ALKALINE PHOSPHATASE 57 U/L (46-116); ALT (SGPT) 20 U/L (10-68); BILIRUBIN - TOTAL 1.25 mg/dL (0.2-1.3); CALC OSMOLALITY 282 mosm/kg (275-300); CALCIUM 9.4 mg/dL (8.5-10.1); CARBON DIOXIDE 32.6 mmol/L (21.0-32.0); CHLORIDE - SERUM 103 mmol/L (98-107); CHOL - HDL RATIO 3.3 ratio (2.3-4.9); CHOLESTEROL, TOTAL 164 mg/dL (0-200); CREATININE - SERUM 0.9 mg/dL (0.6-1.3); GLUCOSE 92 mg/dL (74-106); HDL CHOLESTEROL 50 mg/dL (32-96); LDL CHOLESTEROL 101 mg/dL (0-100); POTASSIUM - SERUM 4.4 mmol/L (3.5-5.1); PROTEIN - SERUM 7.2 g/dL (6.4-8.2); SODIUM 141 mmol/L (136-145); THYROID STIMULATING HORMONE 1.65 uIU/mL (0.36-3.74); TRIGLYCERIDE 66 mg/dL (30-200); UREA NITROGEN 19 mg/dL (7-18); eGFR NON AFRICAN AMERICAN 86 mL/min (90-120)
[2018-05-19 09:45] VITALS: BP 127/70
[2018-05-19 14:29] VITALS: BMI 25.1
[2018-05-19 19:56] VITALS: BP 127/61
[2018-05-20 08:29] LABS: VITAMIN D 25 HYDROXY 32.9 ng/mL (30.0-100.0)
[2018-05-20 09:21] LABS: FOLATE (FOLIC ACID) - SERUM 7.8 ng/mL (>3.0)
[2018-05-20 09:42] VITALS: BP 128/80
[2018-05-20 11:17] LABS: RAPID PLASMA REAGIN Non Reactive (Non Reactive)
[2018-05-20 19:39] VITALS: BP 128/80
[2018-05-21 09:56] VITALS: BP 107/86
[2018-05-21 20:00] VITALS: BP 132/69
[2018-05-22 10:13] VITALS: BP 136/76
[2018-05-22 20:41] VITALS: BP 125/64
[2018-05-22 23:33] LABS: APPEARANCE HAZY (CLEAR); BILIRUBIN NEGATIVE (NEGATIVE); COLOR DK YELLOW (YELLOW); GLUCOSE NEGATIVE (NEGATIVE); KETONE SMALL mg/dL (NEGATIVE); NITRITE NEGATIVE (NEGATIVE); PROTEIN NEGATIVE (NEGATIVE); SPECIFIC GRAVITY 1.025 (1.005-1.020); UROBILINOGEN NORMAL (NORMAL)
[2018-05-22 23:37] LABS: BACTERIA MODERATE /hpf (NONE SEEN); EPITHELIAL CELLS 0-5 /hpf (0-5); GRANULAR CAST RARE /lpf (NONE SEEN); HYALINE CAST 0-5 /lpf (NONE SEEN); MUCUS >1+ /lpf (NONE SEEN); RED CELLS - URINE 0-5 /hpf (0-5)
[2018-05-23 08:00] VITALS: BP 125/65
[2018-05-23 21:06] VITALS: BP 111/54
[2018-05-24 08:02] VITALS: Ht 172.7 cm; Wt 73.3 kg
[2018-05-24 08:12] VITALS: BP 103/56
[2018-05-24 20:41] VITALS: BP 120/64
[2018-05-25 08:19] VITALS: BP 116/80
[2018-05-25 20:08] VITALS: BP 121/64
[2018-05-26 09:06] VITALS: BP 96/54
[2018-05-26 19:27] VITALS: BP 92/70
[2018-05-27 07:35] VITALS: BP 108/55
[2018-05-27 19:53] VITALS: BP 116/57
[2018-05-29 07:00] VITALS: BP 123/75
[2018-05-29 20:00] VITALS: BP 128/70
[2018-05-30 19:56] VITALS: BP 95/53
[2018-05-31 08:00] VITALS: BP 140/80
[2018-05-31 20:06] VITALS: BP 115/91
[2018-06-01 08:09] VITALS: BP 120/57
[2018-06-01 19:26] VITALS: BP 106/50
[2018-06-02 07:36] VITALS: BP 140/70
[2018-06-03 08:05] VITALS: BP 124/69
[2018-06-03 19:31] VITALS: BP 121/61
[2018-06-04 09:35] VITALS: BP 113/66
[2018-06-04 22:32] VITALS: BP 92/52
[2018-06-05 08:18] VITALS: BP 93/54
[2018-06-05 19:57] VITALS: BP 97/60
[2018-06-06 07:48] VITALS: BP 125/70
[2018-06-06 20:23] VITALS: BP 151/87
[2018-06-07 08:55] VITALS: BP 108/61
[2018-06-07 21:12] VITALS: BP 127/70
[2018-06-08 08:15] VITALS: BP 118/70
[2018-06-08 20:12] VITALS: BP 126/65
[2018-06-09 10:47] VITALS: BP 136/76
[2018-06-09 19:48] VITALS: BP 107/74
[2018-06-10 09:55] VITALS: BP 130/70
[2018-06-10 21:20] VITALS: BP 123/64
[2018-06-11 08:00] VITALS: BP 102/76
[2018-06-11 20:06] VITALS: BP 100/54
[2018-06-12 07:00] VITALS: BP 89/59
[2018-06-13 07:00] VITALS: BP 102/57
[2018-06-13] MEDS ORDERED: MEGACE40 MG PO (14:41)
[2018-06-13] MEDS ORDERED: SEROQUEL25 MG PO (14:43)
[2018-06-13] MEDS ORDERED: KLONOPIN0.5 MG PO (14:43)
[2018-06-13] MEDS ORDERED: NAMENDA5 MG PO (14:43)
[2018-06-13] MEDS ORDERED: FLORAJEN3 CAPS460 MG PO (14:45)
[2018-06-13] MEDS ORDERED: COLACE100 MG PO (14:45)
[2018-06-14 06:58] VITALS: BP 108/44
[2018-06-14 07:00] VITALS: BP 104/68
== END 2018-06-14 11:35 | DRG 57 ==
LOC: D.PSYCH 18:12
PROVIDERS: Psychiatry & Neurology Psychiatry
DX: G30.1 Alzheimer's disease with late onset (principal); F02.81 Dementia in other diseases classified elsewhere, unspecified severity, with behavioral disturbance; N39.0 Urinary tract infection, site not specified; I10 Essential (primary) hypertension; K21.9 Gastro-esophageal reflux disease without esophagitis; M10.9 Gout, unspecified; F32.9 Major depressive disorder, single episode, unspecified; F41.8 Other specified anxiety disorders; G47.00 Insomnia, unspecified; B95.2 Enterococcus as the cause of diseases classified elsewhere; I48.91 Unspecified atrial fibrillation; J30.9 Allergic rhinitis, unspecified; N20.0 Calculus of kidney

== ENCOUNTER 2018-05-18 18:20 | Emergency (ER) | payer MEDICARE ==
[2018-04-13 14:59] VITALS: Ht 172.7 cm; Wt 68.2 kg
[~2018-05-18] VITALS: Ht 172.7 cm; Wt 68.2 kg
[2018-05-18 18:51] LABS: BASOPHILS 0.5 % (0-2); EOSINOPHILS 1.6 % (0-7); HEMATOCRIT 44.4 % (42.0-54.0); HEMOGLOBIN 15.4 g/dL (13.5-17.5); IMMATURE GRANULOCYTES 0.1 % (0-5); LYMPHOCYTES 30.4 % (15-50); MCH 35.2 pg (26.0-34.0); MCHC 34.7 g/dL (31.0-37.0); MCV 101.4 fL (80.0-100.0); MEAN PLATELET VOLUME 11.4 fL (7.4-10.4); NEUTROPHILS 57.4 % (40-80); PLATELET COUNT 202 10x3/uL (130-400); RBC 4.38 10x6/uL (4.20-6.10); RDW 13.2 % (11.5-14.5); WBC 7.3 10x3/uL (4.8-10.8)
[2018-05-18 19:12] LABS: ALBUMIN 3.7 g/dL (3.4-5.0); ALKALINE PHOSPHATASE 55 U/L (46-116); ALT (SGPT) 20 U/L (10-68); BILIRUBIN - TOTAL 1.16 mg/dL (0.2-1.3); CALC OSMOLALITY 280 mosm/kg (275-300); CALCIUM 9.5 mg/dL (8.5-10.1); CARBON DIOXIDE 28.8 mmol/L (21.0-32.0); CHLORIDE - SERUM 102 mmol/L (98-107); GLUCOSE 113 mg/dL (74-106); POTASSIUM - SERUM 4.5 mmol/L (3.5-5.1); PROTEIN - SERUM 6.8 g/dL (6.4-8.2); SODIUM 139 mmol/L (136-145); UREA NITROGEN 19 mg/dL (7-18); eGFR NON AFRICAN AMERICAN 76 mL/min (90-120)
[2018-05-18 19:12] LABS: APPEARANCE CLEAR (CLEAR); BILIRUBIN NEGATIVE (NEGATIVE); COLOR YELLOW (YELLOW); GLUCOSE NEGATIVE (NEGATIVE); KETONE NEGATIVE (NEGATIVE); NITRITE NEGATIVE (NEGATIVE); PROTEIN NEGATIVE (NEGATIVE); SPECIFIC GRAVITY 1.015 (1.005-1.020); UROBILINOGEN NORMAL (NORMAL)
[2018-05-18 19:17] LABS: UDS - AMPHET NEGATIVE QUAL (NEGATIVE); UDS - BARB NEGATIVE QUAL (NEGATIVE); UDS - BENZO NEGATIVE QUAL (NEGATIVE); UDS - COCAINE NEGATIVE QUAL (NEGATIVE); UDS - OPIATE POSITIVE QUAL (NEGATIVE); UDS - PCP NEGATIVE QUAL (NEGATIVE); UDS - THC NEGATIVE QUAL (NEGATIVE)
[2018-05-18 20:53] VITALS: BP 140/82
== END 2018-05-18 20:55 ==
LOC: D.ER 18:20
PROVIDERS: Emergency Medicine
DX: F03.91 Unspecified dementia, unspecified severity, with behavioral disturbance (principal); I10 Essential (primary) hypertension

== ENCOUNTER 2018-06-28 08:59 | Emergency (ER) | payer OTHER ==
[~2018-06-28] VITALS: Ht 172.7 cm; Wt 50.0 kg
[~2018-06-28 08:59] MED LIST changes: +COLACE100 MG PO; +FLORAJEN3 CAPS460 MG PO; +KLONOPIN0.5 MG PO; +MEGACE40 MG PO; +SEROQUEL25 MG PO
[2018-06-28 09:03] VITALS: BP 173/101; Ht 172.7 cm; Wt 50.0 kg
[2018-06-28 09:38] LABS: HEMATOCRIT 59.3 % (42.0-54.0); HEMOGLOBIN 18.4 g/dL (13.5-17.5); IMMATURE GRANULOCYTES 0.9 % (0-5); MCH 33.9 pg (26.0-34.0); MCV 109.4 fL (80.0-100.0); PLATELET COUNT 81 10x3/uL (130-400); RBC 5.42 10x6/uL (4.20-6.10); RDW 15.5 % (11.5-14.5); WBC 30.8 10x3/uL (4.8-10.8)
[2018-06-28 09:57] LABS: BASOPHILS 1 % (0-2); LYMPHOCYTES 8 % (15-50); MONOCYTES 10 % (2-11); NEUTROPHILS 62 % (40-80); PLATELET ESTIMATE DECREASED
[2018-06-28 10:09] LABS: ALBUMIN 3.3 g/dL (3.4-5.0); ALKALINE PHOSPHATASE 104 U/L (46-116); ALT (SGPT) 24 U/L (10-68); BILIRUBIN - TOTAL 2.88 mg/dL (0.2-1.3); CALCIUM 10.1 mg/dL (8.5-10.1); CARBON DIOXIDE 16.4 mmol/L (21.0-32.0); CKMB 1.3 U/L (0.0-3.6); CREATINE KINASE 108 UL (21-232); POTASSIUM - SERUM 4.2 mmol/L (3.5-5.1); PROTEIN - SERUM 7.5 g/dL (6.4-8.2); UREA NITROGEN 121 mg/dL (7-18); eGFR NON AFRICAN AMERICAN 12 mL/min (90-120)
[2018-06-28 10:14] LABS: CALC OSMOLALITY 394 mosm/kg (275-300); GLUCOSE 208 mg/dL (74-106)
[2018-06-28 10:16] LABS: SODIUM 178 mmol/L (136-145)
[2018-06-28 10:17] LABS: CHLORIDE - SERUM 130 mmol/L (98-107)
== END 2018-06-28 12:52 ==
LOC: D.ER 08:59
PROVIDERS: Family Medicine
DX: I46.9 Cardiac arrest, cause unspecified (principal); E87.0 Hyperosmolality and hypernatremia; E87.2 Acidosis; D72.829 Elevated white blood cell count, unspecified; N19 Unspecified kidney failure; A41.9 Sepsis, unspecified organism; D69.6 Thrombocytopenia, unspecified; F03.90 Unspecified dementia, unspecified severity, without behavioral disturbance, psychotic disturbance, mood disturbance, and anxiety; I10 Essential (primary) hypertension; K21.9 Gastro-esophageal reflux disease without esophagitis